=== PATIENT | male | born 1965 | race Caucasian/White ===

== ENCOUNTER 2016-10-28 10:08 | Emergency (ER) | payer OTHER ==
[~2016-10-28] VITALS: Ht 182.9 cm; Wt 117.9 kg
--- NOTE | 2016-10-28 11:17 | PHYS DOC ---
Past Medical History Past Medical History: Hypertension Past Surgical History: No Surgical History Alcohol Use: None Drug Use: None Adult General Chief Complaint Chief Complaint: LOWER EXTREMITY SWELLING HPI HPI Patient is a 51 year old male nonsmoker with only past medical history hypertension presents with swelling of the right lower extremity. Patient denies any trauma. Patient recently engaged in a long kayak trip when he will be in the kayak for 20 hours at a time. Patient denies any chest pain, shortness of breath or pain at any other place. Review of Systems Review of Systems Constitutional: Denies fever or chills [] HENT: Denies pain Respiratory: Denies cough or shortness of breath [] Cardiovascular: No chest pain GI: Denies abdominal pain, : Denies dysuria or hematuria [] Musculoskeletal: Denies back pain or joint pain, swelling of the right lower extremity Integument: Denies rash or skin lesions [] Neurologic: Denies headache, focal weakness or sensory changes [] Allergies Allergies Allergies Coded Allergies Type Severity Reaction Last Updated Verified No Known Drug Allergies 10/28/16 No Physical Exam Physical Exam Constitutional: Well developed, well nourished, no acute distress, non-toxic appearance. [] HENT: Normocephalic, atraumatic, Eyes: EOMI, conjunctiva normal, no discharge. [] Neck: Normal range of motion, no tenderness, no JVD, no stridor. [] Cardiovascular:Heart rate regular rhythm, no murmur, equal pulses, normal perfusion Lungs & Thorax: Bilateral breath sounds clear to auscultation, no tachypnea Abdomen: Bowel sounds normal, soft, no tenderness, no masses, no pulsatile masses. [] Skin: Warm, dry, no erythema, no rash. [] Back: Normal range of motion Extremities: No tenderness, no cyanosis, no clubbing, ROM intact, swelling of the right lower extremity. [] Neurologic: Alert and oriented X 3, normal motor function, , no focal deficits noted. [] Psychologic: Affect normal, judgement normal, mood normal. [] Current Patient Data Vital Signs Vital Signs Date Time Temp Pulse Resp B/P (MAP) Pulse Ox O2 Delivery O2 Flow Rate FiO2 10/28/16 13:03 55 16 124/75 (91) 98 Room Air 10/28/16 10:55 98.1 98.1 Lab Values Laboratory Tests Test 10/28/16 11:55 White Blood Count 9.2 x10^3/uL (4.0-11.0) Red Blood Count 4.94 x10^6/uL (4.30-5.70) Hemoglobin 15.3 g/dL (13.0-17.5) Hematocrit 44.4 % (39.0-53.0) Mean Corpuscular Volume 90 fL (79-100) Mean Corpuscular Hemoglobin 31 pg (25-35) Mean Corpuscular Hemoglobin Concent 35 g/dL (31-37) Red Cell Distribution Width 13.0 % (11.5-14.5) Platelet Count 148 x10^3/uL (140-400) Neutrophils (%) (Auto) 55 % (31-73) Lymphocytes (%) (Auto) 35 % (24-48) Monocytes (%) (Auto) 6 % (0-9) Eosinophils (%) (Auto) 3 % (0-3) Basophils (%) (Auto) 1 % (0-3) Neutrophils # (Auto) 5.1 x10^3uL (1.8-7.7) Lymphocytes # (Auto) 3.2 x10^3/uL (1.0-4.8) Monocytes # (Auto) 0.5 x10^3/uL (0.0-1.1) Eosinophils # (Auto) 0.3 x10^3/uL (0.0-0.7) Basophils # (Auto) 0.1 x10^3/uL (0.0-0.2) Sodium Level 143 mmol/L (136-145) Potassium Level 4.0 mmol/L (3.5-5.1) Chloride Level 105 mmol/L (98-107) Carbon Dioxide Level 31 mmol/L (21-32) Anion Gap 7 (6-14) Blood Urea Nitrogen 16 mg/dL (8-26) Creatinine 0.9 mg/dL (0.7-1.3) Estimated GFR (Cockcroft-Gault) 89.3 Glucose Level 91 mg/dL (70-99) Calcium Level 8.6 mg/dL (8.5-10.1) Laboratory Tests 10/28/16 11:55 Laboratory Tests 10/28/16 11:55 EKG EKG [] Radiology/Procedures Radiology/Procedures [] Course & Med Decision Making Course & Med Decision Making Pertinent Labs and Imaging studies reviewed. (See chart for details) [address] Sommer will agrees with plan to start [place]a 15 twice a day they will see the patient at the clinic next week, she request was sent a hypercoagulation panel. I told the patient that this is a send out so it will take a while to get her back but they Request records once he goes to the clinic. Patient agrees and understands and agrees to follow-up as directed. Strict return precautions have been given to the patient including sounding chest pains and shortness of breath and other concerning symptoms patient knows to go to the ED immediately if the symptoms develop. Patient continues to deny any shortness of breath or chest pain [] Dragon Disclaimer Dragon Disclaimer This electronic medical record was generated, in whole or in part, using a voice recognition dictation system. Departure Departure Impression: Primary Impression: DVT (deep venous thrombosis) Disposition: HOME, SELF-CARE Condition: STABLE Referrals: RANDY SOMMER MD (PCP) Your PCP's office will call you for an appointment, you should be seen at the clinic next Thursday Patient Instructions: Deep Vein Thrombosis Scripts Rivaroxaban (XARELTO) 15 Mg Tablet 15 MG PO BID for 21 Days, #42 TAB Prov: Craig KOROMA MD 10/28/16 Craig KOROMA MD Oct 28, 2016 11:17
--- NOTE | 2016-10-28 11:59 | RAD ---
Right lower extremity venous ultrasound, 10/28/2016 : History: Right calf pain Duplex evaluation including grayscale, color flow and spectral Doppler analysis was performed. The right common femoral and superficial femoral veins are patent. There is occlusive thrombus in the right popliteal vein. This extends into the posterior tibial and peroneal veins in the right calf. IMPRESSION: Deep vein thrombosis in the right popliteal and calf veins.
[2016-10-28 12:12] LABS: BASO # 0.1 x10^3/uL (0.0-0.2); BASO % 1 % (0-3); EOS % 3 % (0-3); HEMATOCRIT 44.4 % (39.0-53.0); HEMOGLOBIN 15.3 g/dL (13.0-17.5); LYMPH # 3.2 x10^3/uL (1.0-4.8); LYMPH % 35 % (24-48); MEAN CORPUSCULAR HEMOGLOBIN 31 pg (25-35); MEAN CORPUSCULAR HGB CONC 35 g/dL (31-37); MEAN CORPUSCULAR VOLUME 90 fL (79-100); MONO % 6 % (0-9); NEUT % 55 % (31-73); PLATELET COUNT 148 x10^3/uL (140-400); RED BLOOD COUNT 4.94 x10^6/uL (4.30-5.70); WHITE BLOOD COUNT 9.2 x10^3/uL (4.0-11.0)
[2016-10-28 12:14] LABS: CALCIUM 8.6 mg/dL (8.5-10.1); CREATININE 0.9 mg/dL (0.7-1.3); GFR 89.3
[2016-10-28 14:04] VITALS: BP 137/82
[2016-10-28] MEDS ORDERED: RIVA15TA PO (14:09)
[2016-10-28 14:14] LABS: INR 1.2 (0.8-1.1); PROTHROMBIN TIME PATIENT 14.1 SEC (11.7-14.0)
== END 2016-10-28 14:50 | disposition home or self-care (01) ==
LOC: ER 10:08
DX: I82.431 Acute embolism and thrombosis of right popliteal vein (principal); I10 Essential (primary) hypertension
CPT/HCPCS: 36415; 80048; 85025; 85610; 85730; 93971; 99285-25